=== PATIENT | female | born 1960 | race Caucasian/White ===

== ENCOUNTER 2023-09-21 12:10 | Emergency (ER) | payer OTHER ==
[~2023-09-21] VITALS: Ht 157.5 cm; Wt 104.3 kg
[2023-09-21 13:18] VITALS: BP 146/85; TEMP 98.1; O2SAT 98
== END 2023-09-21 13:55 | disposition home or self-care (01) ==
LOC: ER 12:10
DX: H92.01 Otalgia, right ear (principal); I10 Essential (primary) hypertension; F41.9 Anxiety disorder, unspecified; Z88.0 Allergy status to penicillin